=== PATIENT | female | born 1995 ===

== ENCOUNTER 2022-09-07 12:29 | Outpatient (CLI) | payer BC, SELFPAY ==
[2022-09-07 13:52] LABS: Albumin* 4.4 g/dL (3.3-5.0); Chloride* 108 mmol/L (96-114); Potassium* 4.2 mmol/L (3.6-5.1); Sodium* 140 mmol/L (135-149)
[2022-09-07 13:54] LABS: Bilirubin Total* 0.7 mg/dL (0.1-1.5); Creatinine* 0.7 mg/dL (0.5-1.5); Estimated Glomerular Filt Rate 121 ml/min
[2022-09-07 13:55] LABS: Alanine Aminotransferase* 11 U/L (4-35); Alkaline Phosphatase* 47 U/L (40-150); Aspartate Amino Transferase* 25 U/L (12-35); Blood Urea Nitrogen* 11 mg/dL (5-24); Carbon Dioxide* 26 mmol/L (20-32); Glucose* 101 mg/dL (60-115); Total Protein* 7.8 g/dL (6.0-8.3)
[2022-09-07 13:56] LABS: Calcium* 9.8 mg/dL (8.4-10.6)
[2022-09-07 14:24] LABS: TSH With Reflex to FT4* 0.903 uIU/mL (0.270-4.200)
== END 2022-09-07 12:30 | disposition home or self-care (01) ==
PROVIDERS: Visit Provider Nurse Practitioner Family
DX: R07.9 Chest pain, unspecified (principal)
CPT/HCPCS: 80053; 84443

== ENCOUNTER 2023-06-09 15:30 | Outpatient (RCR) | payer BC, OTHER, SELFPAY | END 2023-07-01 12:06 | disposition home or self-care (01) | PROVIDERS: PCP Nurse Practitioner Family; Visit Provider Internal Medicine | DX: S19.9XXA Unspecified injury of neck, initial encounter (principal); R51.9 Headache, unspecified; Z51.89 Encounter for other specified aftercare; R53.1 Weakness; R25.2 Cramp and spasm | CPT/HCPCS: 97032; 97110; 97140; 97161 ==